=== PATIENT | female | born 1990 | race American Indian/Alaskan Native ===

== ENCOUNTER 2017-01-12 12:27 | Emergency (ER) | payer OTHER ==
[~2017-01-12] VITALS: Ht 157.5 cm; Wt 60.3 kg
[2017-01-12] MEDS ORDERED: MORPHINE SULFATE 4 MG/ML, 1ML IVPush PRN (13:00)
[2017-01-12] MEDS ORDERED: ONDANSETRON 2MG/ML, 2ML IVPush ONE (13:00)
[2017-01-12] MEDS ORDERED: SODIUM CHLORIDE FLUSH 10ML SYR IVF ONE (13:00)
[2017-01-12] MEDS ORDERED: FAMOTIDINE 20 MG/2 ML IVP ONE (13:00)
[2017-01-12] MEDS ORDERED: SODIUM CHLORIDE 0.9% 1,000ML IVBOLUS ONE (13:00)
[2017-01-12 13:28] LABS: BLOOD UREA NITROGEN 7 mg/dL (7-18)
[2017-01-12 13:40] LABS: ASPARTATE AMINO TRANSFERASE 54 U/L (15-37)
[2017-01-12] MEDS ORDERED: MAALOX/HYOSCYAMINE/LIDOCAINE 45 ML BOTTLE ONE (14:53)
[2017-01-12] MEDS ORDERED: MAALOX/HYOSCYAMINE/LIDOCAINE 45 ML BOTTLE PO ONE (15:00)
[2017-01-12] MEDS ORDERED: MORPHINE SULFATE 4 MG/ML, 1ML ONE (15:32)
[2017-01-12] MEDS ORDERED: ONDANSETRON 2MG/ML, 2ML ONE (15:32)
[2017-01-12] MEDS ORDERED: FAMOTIDINE 20 MG/2 ML ONE (15:32)
[2017-01-12 17:24] VITALS: BP 125/59
== END 2017-01-12 17:26 | disposition home or self-care (01) ==
LOC: ED 17:17
DX: N30.00 Acute cystitis without hematuria (principal); R10.13 Epigastric pain
CPT/HCPCS: 36415; 74176; 76700; 80053; 81001; 83690; 84703; 85025; 87077; 87086; 87186; 96361; 96374; 96375; 99285; J2405; J7030; S0028